=== PATIENT | female | born 1955 | race Caucasian/White ===

== ENCOUNTER → 2019-12-10 | Outpatient (CLI) | payer MEDICARE, OTHER | LOC: LAB 19:03 → LAB SHORT 19:03 | PROVIDERS: Nurse Practitioner Family | DX: Z01.419 Encounter for gynecological examination (general) (routine) without abnormal findings (principal) | CPT/HCPCS: G0145 ==

== ENCOUNTER 2023-03-21 18:37 | Emergency (ER) | payer OTHER, MEDICARE ==
[~2023-03-21] VITALS: Ht 172.7 cm; Wt 53.5 kg
[2023-03-22 00:30] VITALS: BP 135/65
== END 2023-03-22 00:53 | disposition home or self-care (01) ==
LOC: ER 18:37
DX: S52.572A Other intraarticular fracture of lower end of left radius, initial encounter for closed fracture (principal); W01.10XA Fall on same level from slipping, tripping and stumbling with subsequent striking against unspecified object, initial encounter; Z88.2 Allergy status to sulfonamides
CPT/HCPCS: 25605; 73090; 76000; 96374-59; 99284-25; A9270; J2270; J2704; J7030

== ENCOUNTER 2023-03-29 09:24 | Day surgery (SDC) | payer MEDICARE, OTHER ==
[~2023-03-29] VITALS: Ht 172.7 cm; Wt 51.7 kg
--- NOTE | 2023-03-29 11:29 | NUR ---
03/29/23 1129 [facility] 1109 TIMEOUT COMPLETED 1125 NERVE BLOCK COMPLETED BY DR BALL AT BEDSIDE WITH DR CARRIZALES ASSISTING.
--- NOTE | 2023-03-29 11:51 | NUR ---
03/29/23 1151 Libby Pitt A PILLOW UNDER HEAD AND UNDER KNEES, RIGHT ARM SECURED ON PADDED ARM BOARD, LEFT ARM ON DOUBLE ARMBOARD.
[2023-03-29 13:15] VITALS: BP 145/86
--- NOTE | 2023-03-29 14:08 | NUR ---
03/29/23 1408 Manolo Box PT REPORTED 3/10 PAIN AT TIME OF DISCHARGE. HOWEVER, SHE DESCRIBED PAIN TOLERABLE AND EXPRTESSDED READINESS TO RETURN HOME.
== END 2023-03-29 14:00 | disposition home or self-care (01) ==
LOC: ORSCSDS 09:24
PROVIDERS: Orthopaedic Surgery
PROC: 0PSJ04Z Reposition Left Radius with Internal Fixation Device, Open Approach (ICD-10-PCS; principal; 2023-03-29 11:00)
DX: S52.572A Other intraarticular fracture of lower end of left radius, initial encounter for closed fracture (principal); W01.0XXA Fall on same level from slipping, tripping and stumbling without subsequent striking against object, initial encounter
CPT/HCPCS: A9270; C1713; J0690; J1100; J1885; J2250; J2405; J2704; J3010; J7120

== ENCOUNTER → 2023-08-13 | Outpatient (CLI) | payer MEDICARE, OTHER ==
[2023-08-14 11:43] LABS: Stool Occult Bld Immuno 1 Negative (NEGATIVE)
== END | disposition home or self-care (01) ==
LOC: LAB SHORT 14:55 → LAB 14:55
PROVIDERS: Family Medicine
DX: Z12.11 Encounter for screening for malignant neoplasm of colon (principal)
CPT/HCPCS: G0328

== ENCOUNTER 2025-09-06 08:34 | Day surgery (SDC) | payer MEDICARE, OTHER ==
[~2025-09-06] VITALS: Ht 170.2 cm; Wt 52.6 kg
[~2025-09-06 08:34] MED LIST: NS 500 ML IV ONE
[2025-09-06] MEDS ORDERED: Crestor40 MG PO (08:55)
[2025-09-06] MEDS ORDERED: NS 500 ML IV ONE (08:57)
[2025-09-06] MEDS ORDERED: Midazolam HCl 1MG / ML 2ML Vial ONE (09:07)
[2025-09-06] MEDS ORDERED: FentaNYL Citrate 50 MCG/ML 2 ML Injection ONE (09:07)
[2025-09-06] MEDS ORDERED: CeFAZolin Sodium 2,000 MG VIAL ONE (09:09)
--- NOTE | 2025-09-06 09:15 | NUR ---
[facility]. PRE-OP INJECTION BY DR STAFFORD, TOTAL OF 4 CC OF MIX OF (9CC LIDOCAINE 1% WITH EPI 1:100,000 WITH 1 CC SODIUM BICARB). PT TOLERATED WELL.
[2025-09-06 09:44] VITALS: BP 105/54
== END 2025-09-06 10:11 | disposition home or self-care (01) ==
LOC: ORSCSDS 08:34
PROVIDERS: Orthopaedic Surgery
PROC: 0LN70ZZ Release Right Hand Tendon, Open Approach (ICD-10-PCS; principal; 2025-09-06 10:00)
DX: M65.311 Trigger thumb, right thumb (principal); E78.5 Hyperlipidemia, unspecified; Z79.899 Other long term (current) drug therapy
CPT/HCPCS: J0690; J2250; J2704; J3010; J7040